=== PATIENT | female | born 1955 | race Caucasian/White ===

== ENCOUNTER 2022-06-07 18:40 | Emergency (ER) | payer OTHER, MEDICAID ==
[~2022-06-07] VITALS: Ht 167.6 cm; Wt 104.3 kg
[2022-06-07 19:13] VITALS: BP_SYST 178
--- NOTE | 2022-06-07 19:13 | NUR ---
Patient triaged and placed in waiting room. VSS and patient appears in no acute distress at this time. Accompanied by DAUGHTER, awaiting available bed, and MD notified of need for MSE.
--- NOTE | 2022-06-07 19:21 | NUR ---
ER IN TRIAGE examining patient.
[2022-06-07] MEDS ORDERED: ONDANSETRON 4 MG ODT TAB PO ONE ×3 (19:30→22:30)
[2022-06-07 20:14] LABS: BASOPHILS # (AUTO) 0.1 K/uL (0.0-0.2); BASOPHILS % (AUTO) 0.4 % (0.0-2.0); EOSINOPHILS % (AUTO) 0.1 % (0.0-4.0); HEMOGLOBIN 13.4 g/dL (12.0-16.0); LYMPHOCYTES # (AUTO) 1.9 K/uL (1.0-5.5); LYMPHOCYTES % (AUTO) 12.5 % (20.5-51.5); MEAN CORPUSCULAR HEMOGLOBIN 29 pg (27-31); MEAN CORPUSCULAR HGB CONC 33 % (32-36); MEAN CORPUSCULAR VOLUME 88 fL (79.0-98.0); MONOCYTES # (AUTO) 0.5 K/uL (0.0-1.0); MONOCYTES % (AUTO) 3.4 % (1.7-9.3); NEUTROPHILS # (AUTO) 12.9 K/uL (1.8-7.7); NEUTROPHILS % (AUTO) 83.6 % (40.0-70.0); PLATELET COUNT (AUTO) 270 K/uL (130-430); RED BLOOD CELL COUNT(AUTO) 4.65 MIL/uL (4.2-6.2); RED CELL DISTRIBUTION WIDTH 14.7 % (9.0-15.0); WHITE BLOOD COUNT (AUTO) 15.4 K/uL (4.8-10.8)
[2022-06-07 20:16] LABS: BILIRUBIN,URINE NEGATIVE (NEGATIVE); BLOOD, URINE 2+ (NEGATIVE); COLOR,URINE YELLOW (YELLOW); GLUCOSE,URINE NEGATIVE (NEGATIVE); KETONES,URINE 2+ (NEGATIVE); LEUKOCYTE ESTERASE ,URINE NEGATIVE (NEGATIVE); NITRITE, URINE NEGATIVE (NEGATIVE); PROTEIN URINE 1+ (NEGATIVE); UROBILINOGEN,URINE 0.2 (0.2-1.0)
[2022-06-07 20:26] LABS: CLARITY/URINE CLOUDY (CLEAR)
[2022-06-07 20:30] LABS: ANION GAP 10 (5-15); CALCIUM 9.1 mg/dL (8.4-11.0); CHLORIDE 101 mmol/L (98-107); CREATININE 0.74 mg/dL (0.55-1.30); GLUCOSE 179 mg/dL (70-99); UREA NITROGEN, BLOOD 14 mg/dL (8-21)
[2022-06-07 20:34] LABS: GFR AFRICAN AMERICAN 101 mL/min (>90)
[2022-06-07 20:47] LABS: ALANINE AMINOTRANSFERASE 25 U/L (12-78); ALBUMIN 4.3 g/dL (3.4-4.8); AMYLASE 72 U/L (0-100); ASPARTATE AMINOTRANSFERASE 16 U/L (10-37); C-REACTIVE PROTEIN QUANT 3.3 mg/dL (0-0.5); LACTATE DEHYDROGENASE 159 U/L (81-234); LIPASE 107 U/L (73-393); TOTAL BILIRUBIN 0.5 mg/dL (0.0-1.0)
[2022-06-07 20:53] LABS: ACETONE, SERUM NEGATIVE (NEGATIVE)
[2022-06-07 20:57] LABS: BACTERIA,URINE FEW /HPF (None Seen); WBC,URINE 0-3 /HPF (0-3)
--- NOTE | 2022-06-07 21:06 | NUR ---
Patient to [facility] for evaluation. Side rails up.
--- NOTE | 2022-06-07 21:10 | NUR ---
PATIENT BROUGHT IN COMPLAINING OF EPIGASTRIC PAIN STARTING AT NOON TODAY RADIATING RUQ WITH 3 EPISODES OF VOMITING TODAY. PAIN 04/06. SENT FROM TO [facility].
[2022-06-07] MEDS ORDERED: ONDA-8 TL (21:12)
[2022-06-07] MEDS ORDERED: OMEP20CA15 PO (21:12)
[2022-06-07] MEDS ORDERED: MAG HYDROX/AL HYDROX/SIMETH 30 ML, DICYCLOMINE HCL 20 MG, LIDOCAINE VISCOUS 2% 15ML (PO... PO ONE ×3 (21:15)
[2022-06-07] MEDS ORDERED: NACL 0.9% 1,000 ML IV ONE (22:00)
[2022-06-07] MEDS ORDERED: METOCLOPRAMIDE HCL 10 MG/2 ML VIAL IVP ONE (22:00)
[2022-06-07] MEDS ORDERED: DIPHENHYDRAMINE INJ 50 MG/ML VIAL IVP ONE (22:00)
--- NOTE | 2022-06-07 22:00 | NUR ---
PATIENT HAD ONE EPISODE OF EMESIS. MD NOTIFIED. NEW ORDERS RECEIVED
[2022-06-07] MEDS ORDERED: METO-290 PO (23:24)
[2022-06-07 23:52] VITALS: BP_SYST 162
--- NOTE | 2022-06-07 23:52 | NUR ---
Patient given written and verbal discharge instructions and verbalizes understanding. ER MD discussed with patient the results and treatment provided. Patient in stable condition. ID arm band removed. IV catheter removed intact and dressing applied, no active bleeding. Rx of REGLAN, ZOFRAN AND OMEPRAZOLE given. Patient educated on pain management and to follow up with PMD. Pain Scale 0/10 Opportunity for questions provided and answered. Medication side effect fact sheet provided.
== END 2022-06-07 23:52 | disposition home or self-care (01) ==
LOC: SED 18:40
DX: R10.13 Epigastric pain (principal); R11.2 Nausea with vomiting, unspecified; Z79.899 Other long term (current) drug therapy
CPT/HCPCS: 99284; 74176; 96374; 96361; 96375; 80053; 81000; 82009; 82150; 83615; 83690; 85025; 86140; 84484; 36415; 76376; 83605; Q0162; J2001; J1200; J2765; J7030